=== PATIENT | female | born 1975 ===

== ENCOUNTER 2018-06-03 13:46 | Emergency (ER) | payer OTHER, SELFPAY ==
[2018-06-03 13:47] VITALS: BMI 21.2
--- NOTE | 2018-06-03 14:31 | ED PDOC ---
Syncope/Near Syncope/Dizziness Time Seen by Provider: 06/03/18 13:51 Chief Complaint (Nursing): Dizziness/Lightheaded Chief Complaint (Provider): Syncope History Per: Patient, Other (FLOCCULATOR OPERATOR report) History/Exam Limitations: no limitations Number Of Syncopal Episodes: 1 Additional Complaint(s): 43yo female, otherwise well, brought to ER for a rapid response from the mammography room. The patient had a bilateral breast biopsy this morning, and subsequently went to get her mammogram. During that time, patient had a witnessed syncopal episode but recovered immediately. Dr. Pereira responded to the FLOCCULATOR OPERATOR, and upon his arrival, patient was awake, alert and oriented x 3 and had tolerated PO intake. At present, the patient has no medical complaints. She denies any headache, weakness, chest pain, shortness of breath, weakness or numbness. No additional complaints. PMD: [facility] Past Medical History Reviewed: Historical Data, Nursing Documentation, Vital Signs Vital Signs: Last Vital Signs Temp 98.6 F 06/03/18 13:49 Pulse 92 H 06/03/18 13:49 Resp 20 06/03/18 13:49 BP 116/90 06/03/18 13:49 Pulse Ox 98 06/03/18 13:49 - Medical History PMH: Anemia - Surgical History Surgical History: Other surgeries: tubal ligation - Family History Family History: States: No Known Family Hx - Home Medications Home Medications: Ambulatory Orders Medication Instructions Recorded Docusate Sodium [Colace] 100 mg PO BID #60 capsule 06/03/18 Ferrous Sulfate 325 mg PO BID #60 tablet 06/03/18 - Allergies Allergies/Adverse Reactions: Allergies Allergy/AdvReac Type Severity Reaction Status Date / Time No Known Allergies Allergy Verified 06/03/18 13:49 Review of Systems ROS Statement: Except As Marked, All Systems Reviewed And Found Negative Constitutional: Negative for: Weakness Cardiovascular: Negative for: Chest Pain Respiratory: Negative for: Shortness of Breath Gastrointestinal: Negative for: Nausea, Vomiting, Diarrhea Neurological: Positive for: Other (syncope). Negative for: Weakness, Numbness Physical Exam - Reviewed Nursing Documentation Reviewed: Yes Vital Signs Reviewed: Yes - Physical Exam Appears: Positive for: Non-toxic, No Acute Distress Head Exam: Positive for: ATRAUMATIC, NORMAL INSPECTION, NORMOCEPHALIC Skin: Positive for: Normal Color Eye Exam: Positive for: EOMI, PERRL. Negative for: Nystagmus ENT: Negative for: Pharyngeal Erythema Neck: Positive for: Normal, Painless ROM, Supple Cardiovascular/Chest: Positive for: Regular Rate, Rhythm. Negative for: Murmur Respiratory: Positive for: Normal Breath Sounds. Negative for: Wheezing Pulses-Radial (L): 2+ Pulses-Radial (R): 2+ Gastrointestinal/Abdominal: Positive for: Normal Exam, Soft. Negative for: Tenderness, Guarding, Rebound Back: Positive for: Normal Inspection. Negative for: L CVA Tenderness, R CVA Tenderness Extremity: Positive for: Normal ROM. Negative for: Tenderness, Pedal Edema Neurologic/Psych: Positive for: Alert, plate drying machine tender II-XII, Oriented (x 3). Negative for: Motor/Sensory Deficits, Aphasia, Facial Droop - Laboratory Results Result Diagrams: 06/03/18 14:35 06/03/18 14:35 - ECG ECG: Positive for: Interpreted By Me, Viewed By Me ECG Rhythm: Positive for: Normal QRS, Normal ST Segment. Negative for: ST/T Changes Rate: 91 O2 Sat by Pulse Oximetry: 98 (RA) Pulse Ox Interpretation: Normal Medical Decision Making Medical Decision Making: Impression: Syncope Differential: Vasovagal syncope; less likely cardiac arrhythmia or ACS Plan: -- Labs -- EKG Scribe Attestation: Documented by Natalie Parish acting as a scribe for Monica Davis MD Provider Attestation: All medical record entries made by the Scribe were at my direction and personally dictated by me. I have reviewed the chart and agree that the record accurately reflects my personal performance of the history, physical exam, medical decision making, and the department course for this patient. I have also personally directed, reviewed, and agree with the discharge instructions and disposition. Disposition - Clinical Impression Clinical Impression: Syncope, Anemia - Patient ED Disposition Is Patient to be Admitted: No Doctor Will See Patient In The: Office Counseled Patient/Family Regarding: Studies Performed, Diagnosis, Need For Followup - Disposition Referrals: [facility] [Outside] Disposition: Routine/Home Disposition Time: 15:58 Condition: GOOD Additional Instructions: DHARA MILLER, thank you for letting us take care of you today. Your provider was Monica Davis MD and you were treated for DIZZINESS. The emergency medical care you received today was directed at your acute symptoms. If you were prescribed any medication, please fill it and take as directed. It may take several days for your symptoms to resolve. Return to the Emergency Department if your symptoms worsen, do not improve, or if you have any other problems. Please contact your doctor or call one of the physicians/clinics you have been referred to that are listed on the Patient Visit Information form that is i ncluded in your discharge packet. Bring any paperwork you were given at discharge with you along with any medications you are taking to your follow up visit. Our treatment cannot replace ongoing medical care by a primary care provider outside of the emergency department. Thank you for allowing the [facility] team to be part of your care today. If you had an X-Ray or CT scan: A Radiologist will review the ED reading if any change in treatment is needed we will contact you. If you had a blood, urine, or wound culture: It will take several days for the results, if any change in treatment is needed we will contact you. If you had an STI test: It will take 48 hours for the results. Please call after 1 week if you have not heard back. Instructions: Syncope (Fainting), Anemia Caused by Low Iron Forms: [employer] (Malawian) Print Language: CITIZEN OF [place]
--- NOTE | 2018-06-03 15:06 | CARD ---
APPROVED REPORT Date of service: 06/03/2018 EKG Measurement Heart [id number] <Conclusion> Normal sinus rhythm Normal ECG
[2018-06-03 15:08] LABS: BASO % 0.8 % (0.0-2.0); EOS % 0.4 % (0.0-4.0); HEMOGLOBIN 7.7 g/dL (12.0-16.0); LYMPH # 1.2 K/uL (1.0-4.3); LYMPH % 21.1 % (20.0-40.0); MEAN CORPUSCULAR HEMOGLOBIN 18.4 pg (27.0-31.0); MEAN CORPUSCULAR HGB CONC 29.7 g/dL (33.0-37.0); MEAN PLATELET VOLUME 7.5 fl (7.2-11.7); MONO # 0.3 K/uL (0.0-0.8); MONO % 5.4 % (0.0-10.0); NEUT % 72.3 % (50.0-75.0); NRBC % 0.1 % (0.0-0.0); RBC 4.17 Mil/uL (3.80-5.20); RED CELL DISTRIBUTION WIDTH 16.2 % (11.5-14.5); WHITE BLOOD COUNT 5.5 K/uL (4.8-10.8)
[2018-06-03 15:10] LABS: BLOOD UREA NITROGEN 10 mg/dl (7-17); CALCIUM 8.7 mg/dL (8.4-10.2); GFR NON-AFRICAN AMERICAN > 60
[2018-06-03 16:34] VITALS: BP 119/84; PULSE 84; RESP 18; TEMP 98; O2SAT 100
== END 2018-06-03 16:30 | disposition home or self-care (01) ==
LOC: H.ER 13:46
DX: R55 Syncope and collapse (principal); D64.9 Anemia, unspecified